=== PATIENT | female | born 1990 | race Asian ===

== ENCOUNTER 2016-12-25 18:56 | Emergency (ER) | payer BC ==
[~2016-12-25] VITALS: Ht 162.6 cm; Wt 72.6 kg
[2016-12-25 19:10] VITALS: BP 113/67; TEMP 98.7
== END 2016-12-25 19:34 | disposition home or self-care (01) ==
LOC: ED 18:56
DX: R30.9 Painful micturition, unspecified (principal)
CPT/HCPCS: 99281